=== PATIENT | male | born 1970 | race Caucasian/White ===

== ENCOUNTER 2024-01-19 18:25 | Emergency (ER) | payer SELFPAY ==
--- NOTE | 2024-01-19 18:45 | PC.NURSE ---
ED respiratory notified of pt. arrival. Respiratory to bedside. Pt. states he wears a size 8 or 9 ralph trach, which fell out on and his stoma has been without a trach since.
--- NOTE | 2024-01-19 18:50 | PC.NURSE ---
RT at bedside assessing pt. VSS on RA. No sign of respiratory distress. Pt. denies chest pain.
--- NOTE | 2024-01-19 19:56 | ED.SOB ---
HPI - SOB/Dyspnea General Chief Complaint: Shortness of Breath/Dyspnea Stated Complaint: short of breath trach clogged Time Seen by Provider: 01/19/24 19:46 History of Present Illness HPI Narrative: Patient is a 53-year-old male presents to the ER with a plugged trachea. He has throat cancer and had a tracheostomy for approximately 1 and half years. Patient reports this morning he coughed and became short of breath d/t a mucous plug. He reports he coughed and his trach came out approximately 2 weeks ago. Patient endorses that he is able to cough is having difficulty getting a deep breath. He denies any pain or fevers at this time. Related Data Allergies Allergy/AdvReac Type Severity Reaction Status Date / Time No Known Allergies Allergy Verified 01/19/24 18:48 Review of Systems Review of Systems: All systems reviewed & are unremarkable except as noted in HPI and below Exam Narrative: GENERAL: Well appearing, well-nourished, non-toxic, in mild distress d/t mucous plug. HEAD: Normocephalic, atraumatic. NECK: Supple. No adenopathy, no masses. Trachea without tracheostomy tube in place. Visible mucous plug in pt's trachea. RESPIRATORY: Airway patent, respirations nonlabored. Clear to auscultation bilaterally, no rales, rhonchi, wheezing. CARDIOVASCULAR: Regular rate and rhythm without murmurs, rubs, or gallops. Peripheral pulses 2+ and equal bilaterally. ABDOMINAL: Soft, nontender, nondistended, no hepatosplenomegaly. Normoactive BS. MUSCULOSKELETAL: Moves all extremities. Strength/ROM intact without gross deformities. SKIN: Warm, dry, normal color. No rashes. NEURO: A&O X3. Speech clear. Cranial nerves II-XII grossly intact. Steady gait. No ataxic movements. PSYCHIATRIC: Appropriate mood and affect. Normal interaction. Course Vital Signs Vital signs: Vital Signs Oxygen Delivery Room Air 01/19/24 18:50 Temperature 36.7 C 01/19/24 20:09 Pulse Rate 73 01/19/24 20:09 Respiratory Rate 16 01/19/24 20:09 Blood Pressure 128/87 01/19/24 20:09 Pulse Oximetry 99 01/19/24 20:13 Oxygen Delivery Room Air 01/19/24 20:13 MDM - SOB/Dyspnea MDM Narrative Medical decision making narrative: Patient is a 53-year-old male presents to the ER with a plugged trachea. He has throat cancer and had a tracheostomy for approximately 1 and half years. Patient reports this morning he coughed and became short of breath d/t a mucous plug. He reports he coughed and his trach came out approximately 2 weeks ago. Patient endorses that he is able to cough is having difficulty getting a deep breath. He denies any pain or fevers at this time. Labs Ordered: None needed Imaging Ordered: None needed Diagnosis: Plugged tracheostomy Patient Education/Shared MDM: Mucus plug was removed at bedside by [facility]. Patient endorses the ability to breathe easier once mucus plug was removed. He reports he no longer has laryngoscopy tubes at home and he receives most of his care at [facility]. Since patient has been without a laryngoscopy tube for two weeks, he feels stable enough to be discharged instead of transferred to [facility]. Patient will discharge home and follow-up with his doctors at [facility] for more supplies. Strict parameters to find with patient as to when he should return to the ER. Patient verbalizes understanding and is in agreement plan. Patient will be placed on prophylactic antibiotics to prevent respiratory infection. Patient is in agreement with current treatment plan. All questions answered. Vital signs stable at time of discharge. Differential Diagnosis Differential diagnosis: Likely community acquired pneumonia, asthma with exacerbation and other (mucous plug, respiratory distress) Discharge Plan Discharge Clinical Impression: Mucus plug in respiratory tract Patient Disposition: Home, Self-Care Condition: Guarded Prognosis Instructions: Antibiotic Form Additional Instructions: Please return to the ER with an worsening symptoms. Follow-up with your doctors at [facility] and primary care provider as soon as possible. Take all medications as prescribed. Prescriptions: New doxycycline monohydrate 100 mg capsule 100 mg PO BID Qty: 14 0RF Follow-up/Referrals: PHYSICIAN,HUMAN RESOURCES BENEFITS COORDINATOR [Primary Care Provider] - Time of Disposition: 20:30
[2024-01-19 20:09] VITALS: BP 128/87; PULSE 73; RESP 16; TEMP 36.7; O2SAT 99
[2024-01-19 20:13] VITALS: O2SAT 99
--- NOTE | 2024-01-19 20:15 | PC.NURSE ---
patient arrived to ed with c/o of increased working of breathing and decreased oxygenation. pt states that he recently had his Chao tube removed and since has had increased in ineffective sputum clearing. respiratory suctioning at bedside unsuccesful. jose Ann removed mucous plug. pt oxygen saturation improved from 92% to 99%. pt states he is feeling extremly better. pt denies pain after removal of mucous plug.
== END 2024-01-19 20:55 | disposition home or self-care (01) ==
PROVIDERS: Emergency Provider Registered Nurse
DX: T17.490A Other foreign object in trachea causing asphyxiation, initial encounter (principal); W44.F9XA Other object of natural or organic material, entering into or through a natural orifice, initial encounter; C14.0 Malignant neoplasm of pharynx, unspecified
CPT/HCPCS: 99281